=== PATIENT | female | born 1955 | race Caucasian/White ===

== ENCOUNTER 2017-11-18 16:21 | Inpatient (IN) ==
--- NOTE | 2017-11-18 16:47 | Emergency Department Note ---
General Adult HPI - General Chief complaint: Recheck/Abnormal Lab/Rx Stated complaint: High WBC Time Seen by Provider: 11/18/17 16:46 Source: patient Mode of arrival: ambulatory Limitations: no limitations - History of Present Illness HPI Narrative: This patient has had some abdominal pain nausea vomiting diarrhea for months. Dr. Hayes noted that her white blood cell count was elevated so told her to come the emergency room. She is having diarrhea maybe once or twice a day. Does feel dehydrated. Pain is somewhat diffuse in the abdomen and crampy at times. She has never had colonoscopy. Does take Plaquenil for osteoarthritis. - Related Data Home Medications Medication Instructions Recorded Confirmed amlodipine 5 mg tablet 5 mg PO QDAY 12/23/15 11/18/17 hydrochlorothiazide 25 mg tablet 12.5 mg PO QDAY tab 12/23/15 11/18/17 potassium chloride ER 10 mEq 10 meq PO BID 12/23/15 11/18/17 tablet,extended release(part/cryst) Atenolol [Tenormin] 50 mg PO QDAY 01/08/16 11/18/17 Clobetasol Propionate [Temovate] 1 applic TOPICAL BID g 01/08/16 09/07/17 Losartan Potassium [Cozaar] 100 mg PO QDAY 01/08/16 11/18/17 Magnesium Oxide mg PO 01/08/16 09/07/17 Previous Rx's Medication Instructions Recorded finger splint See Dose Instructions .ROUTE 03/04/17 .MEDSUPPLY #1 each hydroxychloroquine 200 mg tablet 200 mg PO BID #60 tab 09/07/17 meloxicam 7.5 mg tablet 7.5 mg PO BID PRN #60 tab 09/07/17 Allergies Allergy/AdvReac Type Severity Reaction Status Date / Time No Known Drug Allergies Allergy Verified 09/07/17 11:12 Review of Systems All systems ED: reviewed and negative except as stated. Past Medical History - Past Medical History PMF Narrative: Medical History (Last Reviewed 09/07/17 @ 11:13 by Khadijah Bess RN) Closed nondisplaced fracture of fifth left metatarsal bone (Acute) Pain in thumb joint with movement of right hand (Chronic) Encounter for long-term (current) use of high-risk medication (Chronic) Trochanteric bursitis of left hip (Acute) Long-term use of immunosuppressant medication (Chronic) Inflammatory arthritis (Chronic) Medial epicondylitis of elbow (Chronic) Osteoarthritis (Chronic) Undifferentiated connective tissue disease (Ruled-out) Polyarthritis (Chronic) YVAN positive (Chronic) Pain in joint (Chronic) Dermatitis (Chronic) Pure hyperglyceridemia (Chronic) Cardiac arrhythmia (Chronic) Dyslipidemia (Chronic) Mixed connective tissue disease (Chronic) Mitral valve prolapse (Chronic) Hypertension, essential (Chronic) Past Surgical History (Last Reviewed 09/07/17 @ 11:13 by Khadijah Bess RN) History of hysterectomy (Chronic) History of cholecystectomy (Chronic) History of delivery (Chronic) Family History (Last Reviewed 09/07/17 @ 11:13 by Khadijah Bess RN) Father Malignant neoplasm of pancreas Essential hypertension Brother Diabetes mellitus Sister Malignant neoplasm Unknown Cardiac disease Surgical history ED: Reports: cholecystectomy, hysterectomy - Social History smoking status: Never smoker Physical Exam Limitations: no limitations General appearance: alert Head: atraumatic, normocephalic Eye: Present: normal appearance ENT: normal exam Neck: Present: normal inspection Chest: Present: normal inspection Respiratory: Present: normal lung sounds bilaterally Cardiovascular: Present: regular rate, normal rhythm, normal heart sounds Abdominal: Present: soft, tenderness, normal bowel sounds. Absent: distention, guarding, rebound, rigidity Abdominal tenderness: Present: diffuse, mild Neurological: Present: alert Psychiatric: Present: normal affect, normal mood Skin: Present: warm, dry, intact Course Vital Signs Temperature 97.3 F 11/18/17 16:23 Pulse Rate 74 11/18/17 16:23 Respiratory Rate 18 11/18/17 16:23 Blood Pressure 115/73 11/18/17 16:23 Pulse Oximetry (%) 96 11/18/17 16:23 Temperature 97.7 F 11/19/17 04:00 Pulse Rate 66 11/19/17 04:00 Respiratory Rate 14 11/19/17 04:00 Blood Pressure 118/74 11/19/17 04:00 Pulse Oximetry (%) 98 11/19/17 04:00 Medical Decision Making - [facility] [place] Narrative Medical decision making narrative: This patient has some sort of infectious phlegmon in her mesentery that is about 5 x 10 cm. I ordered Levaquin and Flagyl and the patient will be admitted to the hospital by Dr. Magaña. - Lab Data Lab results reviewed: Yes I reviewed the patient's lab results. Result diagrams: 12/22/17 05:48 11/19/17 05:48 Lab Results 11/18/17 11/18/17 11/18/17 Range/Units 17:00 17:00 20:10 WBC 12.9 H (4.5-11.0) K/mcL RBC 3.96 L (4.00-5.20) M/mcL Hgb 12.8 (12.0-15.0) g/dL Hct 37.1 (36.0-48.0) % MCV 93.5 (80.0-100.0) fL MCH 32.3 (26.0-34.0) pg MCHC 34.6 (31.0-36.0) g/dL RDW 11.6 (11.5-14.5) % Plt Count 382 (140-440) K/mcL MPV 8.2 (7.4-10.4) fL Gran % 70.7 (38.0-78.0) % Lymph % (Auto) 17.1 (15.5-49.0) % Lake % (Auto) 9.8 (1.0-12.0) % Eos % (Auto) 2.2 (0.0-7.0) % Baso % (Auto) 0.2 (0.0-2.0) % Gran # 9.1 H (1.8-8.0) K/mcL Lymph # (Auto) 2.2 (1.5-4.8) K/mcL Lake # (Auto) 1.3 H (0.1-0.9) K/mcL Eos # (Auto) 0.3 (0.0-0.7) K/mcL Baso # (Auto) 0 (0.0-0.3) K/mcL VBG Lactic Acid 0.8 (0.5-2.2) mmol/L Sodium 134 (133-145) mmol/L Potassium 3.4 (3.3-5.1) mmol/L Chloride 97 (96-108) mmol/L Carbon Dioxide 21 L (22-30) mmol/L Anion Gap 16.0 (8-16) BUN 50 H (6-20) mg/dl Creatinine 2.2 H (0.6-1.1) mg/dl GFR Calculation 24 Glucose 135 H (70-105) mg/dL Calcium 9.6 (8.6-10.4) mg/dl Total Bilirubin 0.3 (0.0-1.0) mg/dL AST 26 (0-37) U/l ALT 27 (0-40) U/l Alkaline Phosphatase 89 (39-117) U/L Total Protein 7.4 (5.9-8.4) gm/dL Albumin 3.9 (3.2-5.2) gm/dL Globulin 3.5 (2.2-3.7) gm/dL Albumin/Globulin Ratio 1.1 (1.0-2.3) Lipase 91 H (7-60) U/L - Radiology Data Radiology results reviewed: Yes I reviewed the patient's radiology results. Disposition Pt seen by [facility] [employer]/PA only: No Clinical Impression: Mesenteric Inflammation Disposition: Xfer As Inpt ([facility])
[2017-11-18] MEDS ORDERED: HYDROmorphone 2 MG/ML SYRINGE IV PRN (16:51)
[2017-11-18] MEDS ORDERED: 0.9 % SODIUM CHLORIDE 1,000 ML IV ONE (16:51)
[2017-11-18] MEDS ORDERED: ONDANSETRON 4 MG/2 ML VIAL IV ONE (16:51)
[2017-11-18 17:39] LABS: Basophils # (Auto) 0 K/mcL (0.0-0.3); Basophils % (Auto) 0.2 % (0.0-2.0); Eosinophils # (Auto) 0.3 K/mcL (0.0-0.7); Eosinophils % (Auto) 2.2 % (0.0-7.0); Granulocytes % (Auto) 70.7 % (38.0-78.0); Lymphocytes # (Auto) 2.2 K/mcL (1.5-4.8); Lymphocytes % (Auto) 17.1 % (15.5-49.0); Mean Cell Volume 93.5 fL (80.0-100.0); Mean Corpuscular HGB Conc 34.6 g/dL (31.0-36.0); Mean Corpuscular Hemoglobin 32.3 pg (26.0-34.0); Monocytes # (Auto) 1.3 K/mcL (0.1-0.9); Monocytes % (Auto) 9.8 % (1.0-12.0); Platelet Count 382 K/mcL (140-440); RBC 3.96 M/mcL (4.00-5.20); Red Cell Distribution Width 11.6 % (11.5-14.5)
[2017-11-18 17:56] LABS: ALT/SGPT 27 U/l (0-40); Albumin 3.9 gm/dL (3.2-5.2); Albumin/Globulin Ratio 1.1 (1.0-2.3); Alkaline Phosphatase 89 U/L (39-117); Blood Urea Nitrogen 50 mg/dl (6-20); Lipase 91 U/L (7-60)
[2017-11-18] MEDS ORDERED: LEVOFLOXACIN 750 MG/150 ML BAG IV ONE (19:35)
[2017-11-18] MEDS ORDERED: metroNIDAZOLE 500 MG/100 ML BAG IV ONE (19:35)
[2017-11-18] MEDS ORDERED: PIPERACILLIN SODIUM/TAZOBACTAM 3.375 GM in DEXTROSE 5% IN WATER 50 ML IV SCH (21:33)
[2017-11-18] MEDS ORDERED: ONDANSETRON 4 MG/2 ML VIAL IV PRN (21:33)
[2017-11-18] MEDS: LACTATED RINGERS 1,000 ML IV SCH (22:08)
[2017-11-18 22:19] LABS: Appearance,Urine CLEAR; Bacteria,Urine MOD /hpf (0); Bilirubin,Urine NEG (NEG); Color,Urine STRAW; Glucose,Urine (UA) NEGATIVE (NEG); Leukocyte Esterase,Urine NEG /uL (NEG); Mucus,Urine FEW /hpf (0); Nitrate,Urine NEG (NEG); Protein,Urine NEG (NEG); Specific Gravity,Urine 1.005 (1.000-1.035); Urine Amorphous Crystals FEW /hpf (0); Urine Blood 0.03 mg/dL (<0.03); Urine RBC 1 /hpf (0-1); Urine Squamous Epithelial Cell < 1 /hpf (0-4); Urine WBC 5 /hpf (0-4); Urobilinogen,Urine NEG (NEG)
--- NOTE | 2017-11-18 23:28 | Consultation ---
DATE OF CONSULTATION: 11/18/2017 CHIEF COMPLAINT: The patient is seen in consultation at the request of Dr. Osullivan for leukocytosis and abnormal abdominal CT scan. HISTORY OF PRESENT ILLNESS: Ms. Patel is a 62-year-old woman who presented to the emergency department after being seen earlier today in her primary care physician's office for chronic abdominal symptoms. The patient reports that beginning the day after Thanksgiving she developed problems with abdominal pain, associated nausea and vomiting. Since that time she has had persistent discomfort in her abdomen with associated nausea and diarrhea. She also had diarrhea the day after Thanksgiving when she had the pain and nausea as well. When she did vomit the day after Thanksgiving her emesis was primarily undigested food and by reports nonbilious. During the subsequent weeks, patient has had decreasing appetite and reports modifying her diet in response to her abdominal pain and discomfort. She states that she has been eating mostly soups and bland and light foods such as applesauce and other similar foods. She specifically is staying away from very heavy foods. When she eats or drinks, she finds that she feels full quickly. If she tries to eat any heavy foods then she has pain in her abdomen. If she sticks to the more bland foods she has a baseline discomfort in her mid abdomen, but does not feel significant pain. She has also continued to have diarrhea. These symptoms have been more episodic in that she starts to feel better, but then the symptoms seem to worsen intermittently. She reports about a 5-pound weight loss since Thanksgiving. She was seen in her primary care physician's office earlier today, at which time some labs were drawn, and she was noted to have an elevated white blood cell count. She was sent to the emergency room for further evaluation. In the Emergency Department, repeat labs were drawn showing an elevated white blood cell count, but remainder of the labs were mostly normal. PAST MEDICAL HISTORY: 1. Hypertension. 2. Mitral valve prolapse. 3. Reported history of mixed connective tissue disorder, though patient states that she thinks her physicians are less certain of this diagnosis. 4. Osteoarthritis. 5. section in 1980 and 1983. 6. Cholecystectomy in 1996. 7. Hysterectomy in 2002. 8. Appendectomy--reported by patient done at time of Csection. FAMILY HISTORY: Father is at 55 years. He had pancreatic cancer and hypertension. Her mother is alive at 78 years. She has siblings with type 2 diabetes mellitus and cancer. SOCIAL HISTORY: The patient reports no tobacco use and no alcohol use. She is and is accompanied by her at this visit. ALLERGIES: NO KNOWN DRUG ALLERGIES. REVIEW OF SYSTEMS: Constitutional: The patient denies chills or fever. She does report a 5 pound weight loss since the onset of her symptoms. GI: Abdominal pain with nausea and diarrhea as per HPI. : No dysuria or hematuria. Pulmonary: No new cough or production of sputum. Cardiovascular: Denies chest pain or pressure. No shortness of breath. Endocrine: No history of diabetes. PHYSICAL EXAMINATION: VITAL SIGNS: Temperature 97.3, pulse 74, respirations 18, blood pressure 115/73, O2 saturations 96 percent on room air. GENERAL APPEARANCE: Ms. Patel is a well-developed, well-nourished woman who appears her stated age, in no acute distress. She is lying on the stretcher. Alert and oriented to person, place, time and circumstance and appropriately communicative in this interview. HEENT: Head is normocephalic. Sclerae are white. Mucous membranes are moist. CHEST: Breath sounds are clear to auscultation bilaterally. No rales or wheezes are heard. No use of accessory respiratory musculature. CARDIOVASCULAR: Regular rhythm and rate. ABDOMEN: Moderately obese, soft, no masses palpated, nontender to palpation, no organomegaly noted. EXTREMITIES: Warm with DP pulses easily palpable bilaterally. No edema. LABS AND STUDIES: CBC shows an elevated white blood cell count of 12.9, hemoglobin 12.8, hematocrit 37.1 and platelets of 382. Serum chemistries show sodium of 134, potassium 3.4, chloride 97, CO2 of 21, BUN 50, creatinine 2.2, glucose 135. Total bilirubin 0.3, AST 26, ALT 27, alkaline phosphatase 89, total protein 7.4, albumin 3.9, and lipase 91. CT scan of the abdomen and pelvis was obtained while the patient was in the emergency department. I do not have a final reading on this scan; however, I have reviewed the images, and the patient does have inflammatory changes with mesenteric stranding at what appears to be the base of the mesentery of the bowel. Much of the bowel otherwise appears normal. I do not see any obvious inflammatory stranding around the pancreas. ASSESSMENT AND PLAN: Leukocytosis, abdominal pain, with associated nausea and diarrhea. CT scan imaging shows phlegmon-like changes within the bowel mesentery. Etiology is uncertain. The patient's history, however, suggest a chronic process most probably infectious, for which IV antibiotic therapy is recommended along with bowel rest. I will review CT scan imaging with the radiologist to delineate further what these changes might represent. Given that the patient clinically is quite stable and has not succumbed to this process over the past few weeks, I think it reasonable to start with conservative management and see how she progresses. This was discussed with the patient and her , and they verbalized understanding and agreement with this plan. Elevated creatinine, probable acute renal insufficiency possibly related to dehydration, given the poor oral intake. The patient will be hydrated with IV fluids. She will be kept nothing by mouth on initial admission. RC:monty Job ID: [id number] Doc ID: [id number] Nilda TAI
[2017-11-19] MEDS: DEXTROSE 5%-1/2NS W/20MEQ KCL 1,000 ML IV SCH ×3 (00:17→18:56)
[2017-11-19] MEDS: LACTATED RINGERS 1,000 ML IV SCH (00:20)
[2017-11-19] MEDS: PIPERACILLIN SODIUM/TAZOBACTAM 2.25 GM in DEXTROSE 5% IN WATER 50 ML IV SCH ×5 (01:14→21:35)
[2017-11-19 06:47] LABS: Basophils # (Auto) 0 K/mcL (0.0-0.3); Basophils % (Auto) 0.1 % (0.0-2.0); Eosinophils # (Auto) 0.2 K/mcL (0.0-0.7); Granulocytes % (Auto) 72.3 % (38.0-78.0); Lymphocytes # (Auto) 1.5 K/mcL (1.5-4.8); Lymphocytes % (Auto) 16.2 % (15.5-49.0); Mean Cell Volume 93.9 fL (80.0-100.0); Mean Corpuscular Hemoglobin 32.9 pg (26.0-34.0); Monocytes # (Auto) 0.9 K/mcL (0.1-0.9); Monocytes % (Auto) 9.4 % (1.0-12.0); Platelet Count 297 K/mcL (140-440); Red Cell Distribution Width 11.7 % (11.5-14.5)
[2017-11-19 07:02] LABS: ALT/SGPT 22 U/l (0-40); Albumin/Globulin Ratio 0.9 (1.0-2.3); Alkaline Phosphatase 74 U/L (39-117); Bilirubin,Direct < 0.2 mg/dL (0.0-0.3); Blood Urea Nitrogen 32 mg/dl (6-20); Gamma Glutamyl Transpeptidase 29 U/L (5-36); Lipase 64 U/L (7-60); Magnesium 1.6 mg/dL (1.6-2.5); Uric Acid 8.4 mg/dL (2.5-8.0)
[2017-11-19] MEDS: PANTOPRAZOLE 40 MG VIAL IV SCH (07:10)
--- NOTE | 2017-11-19 08:47 | General Surgery Progress Note ---
Surgical - Auxillary Note - Subjective Patient Information: Note initiated : 11/19/17 at 8:30 am Service Date, if different from initiated Date: [] Patient: Orly Patel 62 y/o F admitted on 11/18/17 for High WBC/Leukocytosis , Abd Pain, N/V. Chief Complaint: [] Patient resting in bed this morning. Reports urine output much more throughout the night after IV fluids. Some soreness in abdomen this morning but not sever. Vital Signs Temp Pulse Resp BP Pulse Ox 97.4 F 69 16 108/60 96 11/19/17 07:54 11/19/17 07:54 11/19/17 07:54 11/19/17 07:54 11/19/17 07:54 Period Temp Pulse Resp BP Sys/Vanegas Pulse Ox Last 24 Hr 97.3 F-97.7 F 66-74 14-18 108-118/60-74 96-98 Intake and Output 11/18/17 11/19/17 11/19/17 21:59 05:59 13:59 Intake Total 1100 / 1100 50 / 50 Output Total 400 / 400 1200 / 1200 Balance 700 / 700 -1150 / -1150 Weight 160 lb 160 lb PE: Patient alert and oriented in no acute distress Chest: clear bilaterally CV: regular rate and rhythm ABD: non distended. Mild lower abdominal tenderness. No guarding or rebound. EXT: no edema. DP pulses easily palpable. CBC and Chem 7 11/19/17 05:48 11/19/17 05:48 A/P: Intraabdominal inflammatory/infectious process, sub acute-chronic. Have reviewed CT findings with radiologist of phlegmon in mesentery with areas of gas. But no free air into peritoneum. Query previously untreated episode of diverticulitis or enteritis. Patient clinically stable at this point. Will treat with IV abx and keep npo for now. If remains stable with current tx would like repeat CT of abdomen and pelvis with contrast to see evolution of intraabdominal findings. Renal insufficiency, acute; likely from dehydration. Responding to IVF
--- NOTE | 2017-11-19 11:18 | Cat Scan Report ---
CLINICAL INFORMATION: Lower abdominal pain and elevated white blood cell count COMPARISON: None. TECHNIQUE: 0.625 mm helical slices were obtained from the mid heart through the subtrochanteric regions. Following reconstruction, 2.5 mm sagittal, coronal and axial reformatted images were processed and reviewed at bone and soft tissue windows.The exam was performed using radiation dose optimization techniques including, but not limited to, automated exposure control, adjustment of the mA and/or kV according to patient size and use of iterative reconstruction technique. FINDINGS: Lung bases show no abnormality - no effusion. Moderate size hiatal hernia is noted. The noncontrasted heart is grossly normal. Images should the abdomen show the noncontrasted liver to be unremarkable. The gallbladder is surgically absent. Intrahepatic and common bile ducts are normal caliber: CBD is approximately 6 mm. Both noncontrasted kidneys, adrenal glands, spleen, pancreas and aorta are normal in size, configuration and attenuation without focal lesion. Images through the pelvis show hysterectomy/oophorectomy changes. The Urinary bladder is normal. There is a moderate (7 x 4 cm) phlegmon with scattered gas bubbles within the right lower quadrant mesenteric cavity. Inflammation extends to the medial wall of the cecum which is likely the source. There are 5-6 moderately enlarged reactive lymph nodes in this region. The small bowel and sigmoid colon, within this area, do not appear to be inflamed. Bone windows show moderate L3-4 degenerative disc disease, but no focal osseous lesions. IMPRESSION: 7 x 4 cm phlegmon with multiple gas bubbles in the right lower quadrant mesenteric cavity. The inflammation is juxtaposed to the medial wall of the cecum which is, presumably, the source. There is an uncertain report of a prior appendectomy. If an appendectomy was not performed, the patient likely had ruptured appendicitis now manifest as phlegmon. If the patient has had an appendectomy, he may have ruptured stump appendicitis or cecal diverticulitis Moderate-sized hiatal hernia Interpreted and Authenticated by: Adria Lin 11/19/17
[2017-11-19] MEDS: metroNIDAZOLE 500 MG/100 ML BAG IV SCH ×2 (16:50→22:25)
[2017-11-20] MEDS: DEXTROSE 5%-1/2NS W/20MEQ KCL 1,000 ML IV SCH ×3 (00:11→14:03)
[2017-11-20] MEDS: PIPERACILLIN SODIUM/TAZOBACTAM 2.25 GM in DEXTROSE 5% IN WATER 50 ML IV SCH ×5 (04:01→23:59)
[2017-11-20] MEDS: metroNIDAZOLE 500 MG/100 ML BAG IV SCH ×3 (05:50→21:53)
[2017-11-20 06:52] LABS: Basophils # (Auto) 0 K/mcL (0.0-0.3); Basophils % (Auto) 0.1 % (0.0-2.0); Eosinophils # (Auto) 0.2 K/mcL (0.0-0.7); Eosinophils % (Auto) 2.2 % (0.0-7.0); Granulocytes % (Auto) 66.1 % (38.0-78.0); Lymphocytes # (Auto) 1.9 K/mcL (1.5-4.8); Lymphocytes % (Auto) 22.4 % (15.5-49.0); Mean Cell Volume 94.3 fL (80.0-100.0); Mean Corpuscular HGB Conc 34.4 g/dL (31.0-36.0); Mean Corpuscular Hemoglobin 32.5 pg (26.0-34.0); Monocytes # (Auto) 0.8 K/mcL (0.1-0.9); Monocytes % (Auto) 9.2 % (1.0-12.0); Platelet Count 275 K/mcL (140-440); RBC 3.38 M/mcL (4.00-5.20); Red Cell Distribution Width 11.7 % (11.5-14.5)
[2017-11-20] MEDS: PANTOPRAZOLE 40 MG VIAL IV SCH (07:05)
[2017-11-20 07:08] LABS: Blood Urea Nitrogen 14 mg/dl (6-20)
--- NOTE | 2017-11-20 07:59 | General Surgery Progress Note ---
Surgical - Auxillary Note - Subjective Patient Information: Note initiated : 11/20/17 at 7:51 am Service Date, if different from initiated Date: [] Patient: Orly Patel 62 y/o F admitted on 11/18/17 for High WBC/Leukocytosis , Abd Pain, N/V. Chief Complaint: Patient resting in bed. Reports she is feels well. Some soreness last night but this is improved. Passing flatus. No nausea Vital Signs Temp Pulse Resp BP Pulse Ox 97.8 F 68 16 106/67 96 11/20/17 06:26 11/20/17 04:00 11/20/17 06:26 11/20/17 06:26 11/20/17 06:26 Period Temp Pulse Resp BP Sys/Vanegas Pulse Ox Last 24 Hr 97.4 F-99.6 F 68-69 14-16 105-116/60-72 96-98 Intake and Output 11/19/17 11/20/17 11/20/17 21:59 05:59 13:59 Intake Total 1150 / 1150 150 / 150 Output Total 550 / 550 300 / 300 Balance 600 / 600 -150 / -150 Weight 159 lb 8 oz PE: Chest: Clear bilaterally CV: regular rate and rhythm ABD: soft, mild tenderness in lower mid abdomen--less than yesterday. No mass. No rebound or guarding. CBC and Chem 7 11/20/17 04:35 11/20/17 04:35 A/P: Intraabdominal phlegmon. Suspect inflammatory infectious process secondary to bowel:diverticulitis vs appendicitis. Patient reports she was told 36 years ago that her appendix was removed during a but I do not have records to confirm this. Hospital records from [facility] expunged and PCP office closed. Will treat as missed perforated appendicitis. Patient clinically stable and WBCs responding to IV antibiotics. Minimally tender on abx. Patient was eating prior to this admission and seems improved since admission. Will trial sips of clear today and if tolerated slowly advance diet. Consider repeat CT in am with oral and IV contrast for better delineation of intraabdominal process.
[2017-11-20] MEDS ORDERED: FLU VACC QS2017-18 36MOS UP/PF 60 MCG/0.5 ML SYRINGE IM ONE (10:00)
[2017-11-21] MEDS: DEXTROSE 5%-1/2NS W/20MEQ KCL 1,000 ML IV SCH ×4 (00:03→18:53)
[2017-11-21] MEDS: PIPERACILLIN SODIUM/TAZOBACTAM 2.25 GM in DEXTROSE 5% IN WATER 50 ML IV SCH ×2 (05:28→11:47)
[2017-11-21 05:36] LABS: Basophils # (Auto) 0 K/mcL (0.0-0.3); Basophils % (Auto) 0.3 % (0.0-2.0); Eosinophils # (Auto) 0.2 K/mcL (0.0-0.7); Eosinophils % (Auto) 2.3 % (0.0-7.0); Granulocytes % (Auto) 65.5 % (38.0-78.0); Lymphocytes # (Auto) 1.7 K/mcL (1.5-4.8); Lymphocytes % (Auto) 24.1 % (15.5-49.0); Mean Cell Volume 93.7 fL (80.0-100.0); Mean Corpuscular HGB Conc 34.9 g/dL (31.0-36.0); Mean Corpuscular Hemoglobin 32.7 pg (26.0-34.0); Monocytes # (Auto) 0.5 K/mcL (0.1-0.9); Monocytes % (Auto) 7.8 % (1.0-12.0); Platelet Count 265 K/mcL (140-440); RBC 3.28 M/mcL (4.00-5.20); Red Cell Distribution Width 11.9 % (11.5-14.5)
[2017-11-21 05:58] LABS: Blood Urea Nitrogen 5 mg/dl (6-20)
[2017-11-21] MEDS: metroNIDAZOLE 500 MG/100 ML BAG IV SCH ×2 (06:03→14:34)
[2017-11-21] MEDS: PANTOPRAZOLE 40 MG VIAL IV SCH (07:31)
--- NOTE | 2017-11-21 08:05 | General Surgery Progress Note ---
Surgical - Auxillary Note - Subjective Patient Information: Note initiated : 11/21/17 at 7:56 am Service Date, if different from initiated Date: [] Patient: Orly Patel 62 y/o F admitted on 11/18/17 for High WBC/Leukocytosis , Abd Pain, N/V. Chief Complaint: [] Patient had some cramping and gas pain last evening along with passage of flatus and stool. Cramping pain lasted a couple of hours and then resolved on its own. This morning reports she is feeling about the same as yesterday before the episode of cramping pain. Tolerated some sips of clears yesterday. Vital Signs Temp Pulse Resp BP Pulse Ox 98.2 F 59 L 16 114/61 98 11/21/17 04:00 11/21/17 04:00 11/21/17 04:00 11/21/17 04:00 11/21/17 04:00 Period Temp Pulse Resp BP Sys/Vanegas Pulse Ox Last 24 Hr 98.2 F-100.1 F 59-70 14-16 114-132/61-74 97-100 Intake and Output 11/20/17 11/21/17 11/21/17 21:59 05:59 13:59 Intake Total 270 / 270 1150 / 1150 Output Total 300 / 300 600 / 600 100 / 100 Balance -30 / -30 550 / 550 -100 / -100 Weight 159 lb 8 oz PE: No distress. Chest: clear bilaterally CV: regular rhythm and rate ABD: soft, mild lower suprapubic tenderness--same as yesterday. No guarding or rebound. EXt: warm, no edema CBC and Chem 7 11/21/17 04:19 11/21/17 04:19 A/P: Intraabdominal phlegmon; on IV abx. Clinically stable. Will recheck CT of abd and pelvis with contrast this time to better delineate findings.
[2017-11-21] MEDS ORDERED: IOPAMIDOL 100 ML BOTTLE IV ONE (09:22)
--- NOTE | 2017-11-21 13:08 | Cat Scan Report ---
CLINICAL INFORMATION: Fever and abdominal pain COMPARISON: Noncontrast abdomen and pelvic CT three days prior 11/18/2017. TECHNIQUE: Following enteric contrast, 80 cc of Isovue-300 were injected intravenously, and 60 seconds later, 0.625 mm helical slices were obtained from the mid heart through the subtrochanteric regions. Following reconstruction, 2.5 mm sagittal, coronal and axial reformatted images were processed and reviewed at bone, lung and soft tissue windows. Five minutes later, 0.625 mm helical slices were obtained from the mid heart through the kidneys and viewed at soft tissue windows.The exam was performed using radiation dose optimization techniques including, but not limited to, automated exposure control, adjustment of the mA and/or kV according to patient size and use of iterative reconstruction technique. FINDINGS: Lung bases show inferior lower lobes are clear. There are no effusions. Moderate hiatal hernia again noted. The visualized heart is normal. Images through the abdomen show mild fatty change within the liver which is stable - no focal hepatic lesions. The gallbladder is surgically absent. The intrahepatic and common bile ducts are slightly dilated compatible with post cholecystectomy state: CBD is 8 mm. This is unchanged. The pancreas, both kidneys, adrenal glands, spleen and aorta, including aortic branches, are normal in size, configuration and attenuation without focal lesion. Images through the pelvis show urinary bladder to be unremarkable. Hysterectomy/oophorectomy changes are noted. The phlegmon within the right lower quadrant mesenteric cavity overall has decreased slightly over the past three days. Three to four small abscesses have developed within the phlegmon - all less than 2 cm diameter. The enteric contrast filled small and large bowel loops passing through this region show no evidence of extravasation to suggest perforation. There is a high arched loop of the mid sigmoid colon position, near the inflammation, which shows mild wall thickening and may be secondarily inflamed. The remainder of the colon and small bowel are normal. Bone windows show no osseous abnormality. IMPRESSION: Slight reduction in the right lower quadrant mesenteric cavity phlegmon. On today's exam, 3-4 small abscesses have developed within the phlegmon - all less than 2 cm. It is suspected the patient actually did not have her appendix removed and developed appendicitis which then ruptured and is now represented by the phlegmon. Few mildly enlarged reactive mesenteric lymph nodes are also seen in this region Moderate hiatal hernia Interpreted and Authenticated by: Adria Lin 11/21/17
[2017-11-21] MEDS: metroNIDAZOLE 500 MG TABLET PO SCH ×2 (14:38→22:43)
[2017-11-22] MEDS: DEXTROSE 5%-1/2NS W/20MEQ KCL 1,000 ML IV SCH (05:15)
[2017-11-22 06:04] LABS: Basophils # (Auto) 0 K/mcL (0.0-0.3); Basophils % (Auto) 0.2 % (0.0-2.0); Eosinophils # (Auto) 0.2 K/mcL (0.0-0.7); Eosinophils % (Auto) 3.9 % (0.0-7.0); Granulocytes % (Auto) 58.1 % (38.0-78.0); Lymphocytes # (Auto) 1.6 K/mcL (1.5-4.8); Lymphocytes % (Auto) 28.5 % (15.5-49.0); Mean Corpuscular HGB Conc 34.7 g/dL (31.0-36.0); Mean Corpuscular Hemoglobin 32.7 pg (26.0-34.0); Monocytes # (Auto) 0.5 K/mcL (0.1-0.9); Monocytes % (Auto) 9.3 % (1.0-12.0); Platelet Count 265 K/mcL (140-440); RBC 3.32 M/mcL (4.00-5.20); Red Cell Distribution Width 11.9 % (11.5-14.5)
[2017-11-22] MEDS: metroNIDAZOLE 500 MG TABLET PO SCH ×2 (06:15→13:17)
[2017-11-22] MEDS: PANTOPRAZOLE 40 MG VIAL IV SCH (07:38)
[2017-11-22] MEDS ORDERED: LEVOFLOXACIN 500 MG TABLET PO SCH (09:00)
[2017-11-22] MEDS ORDERED: PROMETHAZINE 25 MG TABLET PO PRN (09:02)
--- NOTE | 2017-11-22 09:17 | General Surgery Progress Note ---
Surgical - Auxillary Note - Subjective Patient Information: Note initiated : 11/22/17 at 9:05 am Service Date, if different from initiated Date: [] Patient: Orly Patel 62 y/o F admitted on 11/18/17 for High WBC/Leukocytosis , Abd Pain, N/V. Chief Complaint: [] Patient overall feeling better except some nausea occurring after she takes Flagyl. Tolerated clears but the "queasiness" made her desire to drink less. No emesis. Passing flatus and stool. Vital Signs Temp Pulse Resp BP Pulse Ox 97.4 F 67 16 132/79 97 11/22/17 07:03 11/22/17 04:00 11/22/17 07:03 11/22/17 07:03 11/22/17 07:03 Period Temp Pulse Resp BP Sys/Vanegas Pulse Ox Last 24 Hr 97.3 F-98.5 F 66-70 16-16 101-132/61-79 95-99 Intake and Output 11/21/17 11/22/17 11/22/17 21:59 05:59 13:59 Intake Total 240 / 240 1000 / 1000 230 / 230 Output Total 500 / 500 100 / 100 1075 / 1075 Balance -260 / -260 900 / 900 -845 / -845 Weight 160 lb PE: Chest:Clear bilaterally. No rales or wheezes CV: Regular rate and rhythm ABD: Soft, non distended. Lower abdominal tenderness minimal and less than yesterday. EXT: warm, no edema. DP pulses easily palpable. CBC and Chem 7 11/22/17 04:15 A/P: Intraabdominal abscess: suspect missed perforated appendicitis. Responding to antibiotic therapy. Switched to oral meds yesterday. Flagyl seems to be causing nausea. Will medicate with phenergan for nausea and see how this is tolerated. If she improves and is able to stay adequately hydrated with her p.o. intake can go home on oral meds and follow up as outpatient.
--- NOTE | 2017-11-22 16:30 | Discharge Summary ---
Providers - Providers Patient information: Note initiated : 11/22/17 at 4:18 pm Service Date, if different from initiated Date: [] Patient: Orly Patel 62 y/o F admitted on 11/18/17 for High WBC/Leukocytosis , Abd Pain, N/V. Chief Complaint:Abdomnal pain, Nausea and diarrhea Date of admission: 11/18/17 Discharge date: 11/22/17 Attending physician: Nilda Magaña Primary care physician: Randee Hayes Hospitalization Hospital course: Patient was admitted for several weeks of nausea, diarrhea and recurring abdominal pain which began the day after thanksgi. Work up on admission showed a leukocytosis,tenderness in the mid lower abdomen without guarding or rebound, and intraabdominal inflammation consistent with Phlegmon on CT scan; suspicious for prior untreated diverticulitis or perforated appendicitis Patient was admitted and started on IV antibiotics and kept NPO for bowel rest. On hospital day #4 she was doing well and leukocytosis and abdominal exam were improved. Repeat CT scan was done with contrast to better delineate the intraabdominal findings. This showed small abscess formations within the area of the phlegmon and no evidence of leak or free perforation. Patient was continued on clear liquids and changed to oral antibiotics. Follow up CBC the following day showed WBCs remained within normal limits. She has some mild nausea with taking the Flagyl but this was limited and improved with low dose phenergan. Her abdominal exam continued to improve with near resolution of the lower abdominal tenderness. Patient is discharged home on Levaquin and Flagyl for 10 more days. She is to remain on a clear liquid diet for the next 24 hrs and then slowly introduce full liquids for the remainder of the week. She is to follow up in surgery clinic later this week. Discharge diagnosis: Intraabdominal abscess Exam Temp Pulse Resp BP Pulse Ox 98.7 F 67 16 120/74 98 11/22/17 15:41 11/22/17 04:00 11/22/17 15:41 11/22/17 15:41 11/22/17 15:41 Discharge Plan - Patient/Caregiver Discharge Instructions Activity: increase activity as tolerated Diet: Clear Liquid Additional Instructions: advance to full liquids as tolerated in 24 hrs. Prescriptions: Levofloxacin [Levaquin] 500 mg PO DAILY #10 tab metroNIDAZOLE [Flagyl] 500 mg PO Q8 #30 tab - Follow up Plan Follow up with: Randee Hayes MD [Primary Care Provider] - Nilda Magaña MD [Physician] - Disposition: Home, Self-Care Prognosis: Good Rehab Potential: Good Overall status at discharge: patient is progressing back to baseline Pending Studies Resuscitation Status Full Code Diet Clear Liquid Diet Start WedNov 21 1026 Levofloxacin (Levaquin) 500 mg PO DAILY [facility] Last Admin: 11/22/17 09:13 Dose: 500 mg Metronidazole (Flagyl) 500 mg PO Q8 [facility] Last Admin: 11/22/17 13:17 Dose: 500 mg Admin: 11/22/17 06:15 Dose: 500 mg Admin: 11/21/17 22:43 Dose: 500 mg Admin: 11/21/17 14:38 Dose: 500 mg Pantoprazole Sodium (Protonix) 40 mg IV QAMAC [facility] Last Admin: 11/22/17 07:38 Dose: 40 mg Admin: 11/21/17 07:31 Dose: 40 mg Admin: 11/20/17 07:05 Dose: 40 mg Admin: 11/19/17 07:10 Dose: 40 mg Promethazine HCl (Phenergan) 12.5 mg PO Q6HP PRN PRN Reason: Nausea And Vomiting Last Admin: 11/22/17 09:17 Dose: 12.5 mg Shift Summary 11/22/17 15:32 Shift Summary by Velma Avila Vitals stable on room air. Had 1000 ml in. Taking fluids slow but tolerating. Did get one po Phenergan and voiced improvement. Ambulated independently in halls. Saline locked and taking po antibiotics. Continues to have diarrhea. Calm and cooperative with cares. Initialized on 11/22/17 15:32 - END OF NOTE
== END 2017-11-22 17:50 | disposition home or self-care (01) | DRG 373 ==
LOC: ED 16:21 → MEDSUR 21:33
PROVIDERS: ADMIT Surgery; ATTEND Surgery